=== PATIENT | female | born 1940 | race Caucasian/White ===

== ENCOUNTER → 2016-06-25 | Outpatient (CLI) | payer MEDICARE | END | disposition home or self-care (01) | LOC: CFH 15:39 | PROVIDERS: ATTEND Internal Medicine | DX: E04.1 Nontoxic single thyroid nodule (principal); E03.9 Hypothyroidism, unspecified; E78.2 Mixed hyperlipidemia; K21.9 Gastro-esophageal reflux disease without esophagitis; I12.9 Hypertensive chronic kidney disease with stage 1 through stage 4 chronic kidney disease, or unspecified chronic kidney disease; N18.9 Chronic kidney disease, unspecified; E11.22 Type 2 diabetes mellitus with diabetic chronic kidney disease; N39.0 Urinary tract infection, site not specified; Z85.828 Personal history of other malignant neoplasm of skin | CPT/HCPCS: 76536 ==

== ENCOUNTER → 2017-12-28 | Outpatient (CLI) | payer MEDICARE | END | disposition home or self-care (01) | LOC: CFH 15:21 | PROVIDERS: ATTEND Internal Medicine | DX: M25.512 Pain in left shoulder (principal); E11.22 Type 2 diabetes mellitus with diabetic chronic kidney disease; E78.2 Mixed hyperlipidemia; K21.9 Gastro-esophageal reflux disease without esophagitis; I12.9 Hypertensive chronic kidney disease with stage 1 through stage 4 chronic kidney disease, or unspecified chronic kidney disease; N18.9 Chronic kidney disease, unspecified; E03.9 Hypothyroidism, unspecified ==

== ENCOUNTER → 2018-01-17 | Outpatient (CLI) | payer MEDICARE | END | disposition home or self-care (01) | LOC: CFH 14:51 | PROVIDERS: ATTEND Nurse Practitioner Primary Care | DX: M47.892 Other spondylosis, cervical region (principal); E11.22 Type 2 diabetes mellitus with diabetic chronic kidney disease; E11.65 Type 2 diabetes mellitus with hyperglycemia; I12.9 Hypertensive chronic kidney disease with stage 1 through stage 4 chronic kidney disease, or unspecified chronic kidney disease; N18.9 Chronic kidney disease, unspecified; E03.9 Hypothyroidism, unspecified; E78.2 Mixed hyperlipidemia; K21.9 Gastro-esophageal reflux disease without esophagitis; Z79.899 Other long term (current) drug therapy | CPT/HCPCS: 72040 ==

== ENCOUNTER → 2018-01-26 | Outpatient (CLI) | payer MEDICARE | END | disposition home or self-care (01) | LOC: CFH 07:45 | PROVIDERS: ATTEND Nurse Practitioner Primary Care | DX: M19.012 Primary osteoarthritis, left shoulder (principal); E11.22 Type 2 diabetes mellitus with diabetic chronic kidney disease; N18.9 Chronic kidney disease, unspecified; I12.9 Hypertensive chronic kidney disease with stage 1 through stage 4 chronic kidney disease, or unspecified chronic kidney disease; E78.2 Mixed hyperlipidemia; E03.9 Hypothyroidism, unspecified; K21.9 Gastro-esophageal reflux disease without esophagitis; Z79.899 Other long term (current) drug therapy ==

== ENCOUNTER 2018-12-13 11:43 | Emergency (ER) | payer MEDICARE ==
[~2018-12-13] VITALS: Ht 162.6 cm; Wt 67.0 kg
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
[2018-12-13 13:00] VITALS: BP 135/56
[2018-12-13] MEDS ORDERED: NEOSPORIN OINT. PKT 1 PACKET ONE (13:25)
--- NOTE | 2018-12-13 13:56 | NUR ---
PROVIDED LUNCH. FAMILY AT BEDSIDE. PT A&O AND IN NO DISTRAESS
== END 2018-12-13 14:59 | disposition home or self-care (01) ==
LOC: ED 14:16
DX: S01.01XA Laceration without foreign body of scalp, initial encounter (principal); Y00.XXXA Assault by blunt object, initial encounter; Y93.89 Activity, other specified; Y92.89 Other specified places as the place of occurrence of the external cause; Y99.8 Other external cause status
CPT/HCPCS: 70450; 99284

== ENCOUNTER → 2019-02-01 | Outpatient (CLI) | payer MEDICARE | END | disposition home or self-care (01) | LOC: CFH 09:17 | PROVIDERS: ATTEND Nurse Practitioner Primary Care | DX: M41.86 Other forms of scoliosis, lumbar region (principal); M47.816 Spondylosis without myelopathy or radiculopathy, lumbar region; E78.2 Mixed hyperlipidemia; I12.9 Hypertensive chronic kidney disease with stage 1 through stage 4 chronic kidney disease, or unspecified chronic kidney disease; E11.22 Type 2 diabetes mellitus with diabetic chronic kidney disease; N18.9 Chronic kidney disease, unspecified; K21.9 Gastro-esophageal reflux disease without esophagitis; E03.9 Hypothyroidism, unspecified; R79.9 Abnormal finding of blood chemistry, unspecified; R53.83 Other fatigue; R01.1 Cardiac murmur, unspecified; R53.81 Other malaise; Z79.899 Other long term (current) drug therapy | CPT/HCPCS: 72100 ==